=== PATIENT | female | born 1980 | race African-American/Black ===

== ENCOUNTER 2017-12-28 12:49 | Emergency (ER) | payer SELFPAY ==
[~2017-12-28] VITALS: Ht 167.6 cm; Wt 100.0 kg
[2017-12-28] MEDS ORDERED: CYCLOBENZAPRINE 10MG TABLET PO ONE (16:00)
[2017-12-28] MEDS ORDERED: IBUPROFEN 600MG TABLET PO ONE (16:00)
[2017-12-28] MEDS ORDERED: BACITRACIN ZINC OINT UDPKT TOP ONE (17:00)
[2017-12-28 17:24] VITALS: BP 129/82
== END 2017-12-28 17:35 | disposition home or self-care (01) ==
LOC: ER 12:49
DX: M62.838 Other muscle spasm (principal); M25.511 Pain in right shoulder; S70.312A Abrasion, left thigh, initial encounter; M79.652 Pain in left thigh; R51 Headache; R07.89 Other chest pain; V49.40XA Driver injured in collision with unspecified motor vehicles in traffic accident, initial encounter; Y93.89 Activity, other specified; Y92.410 Unspecified street and highway as the place of occurrence of the external cause
CPT/HCPCS: 81025; 99284